=== PATIENT | female | born 1970 | race Caucasian/White ===

== ENCOUNTER 2022-12-24 20:21 | Inpatient (IN) | payer MEDICARE, MEDICAID ==
[~2022-12-24] VITALS: Ht 154.9 cm; Wt 49.6 kg
[~2022-12-24 20:21] MED LIST: DICY10CA88 PO; ONDA4TAB12 PO
[2022-12-24 21:59] LABS: BASOPHILS % (AUTO) 0.3 % (0-1); EOSINOPHILS % (AUTO) 0.1 % (0-6); HEMATOCRIT 44.2 % (35.0-45.0); HEMOGLOBIN 14.5 g/dl (12.0-16.0); LYMPHOCYTES # (AUTO) 1.1 X10'3 (1.1-4.8); LYMPHOCYTES % (AUTO) 8.2 % (21-51); MEAN CORPUSCULAR HEMOGLOBIN 29.5 PG (27.0-31.0); MEAN CORPUSCULAR HGB CONC 32.8 g/dL (33.0-36.5); MEAN CORPUSCULAR VOLUME 89.8 FL (78-98); MEAN PLATELET VOLUME 9.4 FL (7.4-10.4); MONOCYTES # (AUTO) 0.9 X10'3 (0-0.9); NEUTROPHILS # (AUTO) 11.3 X10'3 (1.8-7.7); NEUTROPHILS % (AUTO) 84.4 % (42-75); PLATELET COUNT 342 X10'3 (140-440); RED BLOOD COUNT 4.93 X10'6 (4.20-5.60); RED CELL DISTRIBUTION WIDTH 14.6 % (11.5-14.5); WHITE BLOOD COUNT 13.4 X10'3 (4.5-11.0)
[2022-12-24 22:06] LABS: ALANINE AMINOTRANSFERASE 19 U/L (12-78); ALBUMIN 3.3 G/DL (3.4-5.0); ALBUMIN/GLOBULIN RATIO 0.7 (1.1-1.5); ALKALINE PHOSPHATASE 108 IU/L (46-116); ANION GAP 11 (8-16); ASPARTATE AMINO TRANSFERASE 20 U/L (10-37); BILIRUBIN,TOTAL 0.4 MG/DL (0.1-1.0); BLOOD UREA NITROGEN 33 MG/DL (7-18); BUN/CREATININE RATIO 31.7 (10.0-20.0); CHLORIDE 101 MMOL/L (99-107); CREATININE 1.04 MG/DL (0.40-0.90); GLUCOSE 152 MG/DL (70-104); SODIUM 138 MMOL/L (135-145); TOTAL CARBON DIOXIDE 26.1 MMOL/L (24-32); TOTAL PROTEIN 8.2 G/DL (6.4-8.2); eCRCL 47 ML/MIN; eGFR 55 ML/MIN
[2022-12-24 22:08] LABS: LIPASE 72 U/L (16-77)
[2022-12-24 22:14] LABS: POTASSIUM 2.9 MMOL/L (3.5-5.1)
[2022-12-24 23:14] LABS: MAGNESIUM 1.8 MG/DL (1.5-2.4)
[2022-12-25] MEDS ORDERED: potassium Cl 20mEq/100mL bag 100 ML IV SCH (05:10)
[2022-12-25] MEDS ORDERED: normal saline 1000ml 1,000 ML IV ONE (05:10)
--- NOTE | 2022-12-25 05:16 | NUR ---
Graciela russell in EDM - 12/25/22 at 0518 by [email or web address] Pt presents to ED c/o bloody vomiting and diarrhea. Is able to answer questions.
--- NOTE | 2022-12-25 05:19 | NUR ---
Pt presents to ED c/o bloody vomiting and diarrhea. Is able to answer questions, reports minimal medical history except for current drug use, current hep C.
[2022-12-25] MEDS ORDERED: potassium Cl 40MEQ/1/2NS 520ml 520 ML IV ONE (05:20)
[2022-12-25] MEDS ORDERED: magnesium 4gm in 100ml NS 100 ML IV PRN (05:25)
[2022-12-25] MEDS ORDERED: magnesium hydroxide 30ml (MOM) UD suspension PO PRN (05:25)
[2022-12-25] MEDS ORDERED: mag hydrox/Alum hydrox/simeth 30ml oral suspension PO PRN (05:25)
[2022-12-25] MEDS ORDERED: acetaminophen 325mg tablet PO PRN (05:25)
[2022-12-25] MEDS ORDERED: albuterol 2.5 MG/3 ML nebule NEB PRN (05:25)
[2022-12-25] MEDS ORDERED: magnesium 2GM in 50ml NS 50 ML IV PRN (05:25)
[2022-12-25] MEDS ORDERED: ondansetron/PF 4mg/2ml inj IV PRN (05:25)
[2022-12-25] MEDS ORDERED: ipratropium/albuterol 3ml nebule NEB PRN (05:25)
[2022-12-25] MEDS ORDERED: potassium Cl 20 mEq SR tablet PO PRN (05:25)
[2022-12-25] MEDS: pantoprazole 40MG/NS 100ML BAG 100 ML IV SCH ×5 (05:34→20:51)
[2022-12-25 05:36] LABS: BILIRUBIN,URINE NEGATIVE (Neg); CLARITY,URINE CLOUDY (Clear); COLOR,URINE YELLOW (Yellow); GLUCOSE, URINE NEGATIVE (Neg); KETONES,URINE NEGATIVE (Neg); LEUKOCYTE ESTERASE ,URINE NEGATIVE (Neg); NITRITES, URINE NEGATIVE (Neg); OCCULT BLOOD,URINE TRACE-INTACT (Neg); PROTEIN,URINE TRACE mg/dl (Neg); URINE HCG NEGATIVE (NEG); UROBILINOGEN,URINE 0.2 E.U/dL (0.2-1.0)
[2022-12-25 05:41] LABS: UA COLLECTION TYPE CLN CATCH MIDSTREAM
--- NOTE | 2022-12-25 05:47 | NUR ---
urine rejected for culture d/t too many epithelium cells per lab
[2022-12-25 05:49] LABS: BACTERIA,URINE 2+ /HPF (Neg); MUCUS STRANDS MODERATE /LPF (Neg); RBC,URINE 0-2 /HPF (0-2); SQUAMOUS EPITHELIAL CELL,UR MANY /LPF (FEW)
[2022-12-25] MEDS: potassium Cl 40MEQ/1/2NS 520ml 520 ML IV PRN ×2 (05:53→11:41)
[2022-12-25] MEDS: normal saline 1000ml 1,000 ML IV SCH ×3 (05:53→17:39)
[2022-12-25] MEDS ORDERED: pantoprazole 40MG/NS 100ML BAG 100 ML IV SCH ×3 (06:00→11:08)
--- NOTE | 2022-12-25 06:33 | NUR ---
received report from Eden CRAWFORD assuming care of pt resting quietly at present time monitor leads on and functioning
[2022-12-25] MEDS: docusate sod 100mg capsule PO SCH ×2 (08:00→20:51)
[2022-12-25] MEDS: K and/or MAG REPLACEMENT MC SCH ×2 (08:00→20:00)
[2022-12-25] MEDS: nicotine 21mg patch - 24 hr TD SCH (08:00)
[2022-12-25 09:24] LABS: BASOPHILS % (AUTO) 0.3 % (0-1); EOSINOPHILS % (AUTO) 0.1 % (0-6); HEMOGLOBIN 11.4 g/dl (12.0-16.0); LYMPHOCYTES # (AUTO) 1.9 X10'3 (1.1-4.8); LYMPHOCYTES % (AUTO) 15.2 % (21-51); MEAN CORPUSCULAR HEMOGLOBIN 29.1 PG (27.0-31.0); MEAN CORPUSCULAR HGB CONC 32.6 g/dL (33.0-36.5); MEAN CORPUSCULAR VOLUME 89.3 FL (78-98); MEAN PLATELET VOLUME 8.8 FL (7.4-10.4); MONOCYTES % (AUTO) 8.2 % (2-12); NEUTROPHILS # (AUTO) 9.3 X10'3 (1.8-7.7); NEUTROPHILS % (AUTO) 76.2 % (42-75); PLATELET COUNT 266 X10'3 (140-440); RED BLOOD COUNT 3.92 X10'6 (4.20-5.60); RED CELL DISTRIBUTION WIDTH 14.9 % (11.5-14.5); WHITE BLOOD COUNT 12.2 X10'3 (4.5-11.0)
[2022-12-25 09:56] LABS: ALANINE AMINOTRANSFERASE 13 U/L (12-78); ALBUMIN 2.5 G/DL (3.4-5.0); ALBUMIN/GLOBULIN RATIO 0.7 (1.1-1.5); ALKALINE PHOSPHATASE 73 IU/L (46-116); ANION GAP 12 (8-16); ASPARTATE AMINO TRANSFERASE 14 U/L (10-37); BILIRUBIN,TOTAL 0.3 MG/DL (0.1-1.0); BLOOD UREA NITROGEN 26 MG/DL (7-18); BUN/CREATININE RATIO 36.1 (10.0-20.0); CALCIUM 8.4 MG/DL (8.5-10.1); CHLORIDE 109 MMOL/L (99-107); CREATININE 0.72 MG/DL (0.40-0.90); GLUCOSE 88 MG/DL (70-104); POTASSIUM 3.4 MMOL/L (3.5-5.1); SODIUM 142 MMOL/L (135-145); TOTAL CARBON DIOXIDE 21.1 MMOL/L (24-32); TOTAL PROTEIN 6.3 G/DL (6.4-8.2); eCRCL 68 ML/MIN; eGFR 85 ML/MIN
[2022-12-25] MEDS ORDERED: NO HOME MEDS (10:11)
--- NOTE | 2022-12-25 12:03 | NUR ---
2nd attempt to give report neuro/ortho floor to Brenda CRAWFORD
--- NOTE | 2022-12-25 12:30 | NUR ---
Patient in room ED 11. I have received report from YVETTE Fisher and had the opportunity to ask questions and assume patient care.
[2022-12-25 12:50] VITALS: BP 143/82; PULSE 99; RESP 18; TEMP 98.7; O2SAT 99
--- NOTE | 2022-12-25 12:55 | NUR ---
pt has arrived on the unit and is stable, taking and recording vital signs now and assessing the patient now. Will add physical assessment in interventions.
[2022-12-25 14:07] VITALS: PULSE 103; RESP 18; O2SAT 99
--- NOTE | 2022-12-25 17:27 | NUR ---
Waiting for patients protonix from pharmacy. I have messaged pharmacy and will continue to look for when medication is brought to the floor
[2022-12-25 18:00] VITALS: BP 139/91; PULSE 94; RESP 20; TEMP 98.5; O2SAT 99
--- NOTE | 2022-12-25 18:11 | NUR ---
protonix was brought to the floor from pharmacy and administered at 1800. NG tube was ordered by Dr. Diaz to be D/C. NG tube was discontinued and patient is able to swallow water and is now resting in no distress at this time.
--- NOTE | 2022-12-25 18:49 | NUR ---
Problems reprioritized. Patient report given, questions answered & plan of care reviewed with YVETTE Arteaga.
--- NOTE | 2022-12-25 18:55 | NUR ---
Patient in room ORTHO 4011. I have received report from JAVIER CRAWFORD and had the opportunity to ask questions and assume patient care.
[2022-12-25 19:51] VITALS: PULSE 111; RESP 18; O2SAT 97
[2022-12-25 20:00] VITALS: RESP 20; O2SAT 99
[2022-12-25 22:00] VITALS: BP_SYST 122; BP_SYST 126; BP_DIAS 68; BP_DIAS 80; PULSE 76; PULSE 80; RESP 16; TEMP 98.6; O2SAT 98
[2022-12-25] MEDS: potassium Cl 20 mEq SR tablet PO PRN (22:03)
[2022-12-26] VITALS (7 sets, daily range): BP systolic 117–158; BP diastolic 68–88; PULSE 80–100; RESP 16–20; TEMP 97.9–98.5; O2SAT 96–99
[2022-12-26] MEDS: pantoprazole 40MG/NS 100ML BAG 100 ML IV SCH ×5 (01:56→21:00)
[2022-12-26] MEDS: normal saline 1000ml 1,000 ML IV SCH ×5 (02:05→21:25)
[2022-12-26] MEDS: potassium Cl 20 mEq SR tablet PO PRN (03:04)
[2022-12-26 06:12] LABS: BASOPHILS % (AUTO) 0.6 % (0-1); EOSINOPHILS # (AUTO) 0.1 X10'3 (0-0.9); EOSINOPHILS % (AUTO) 0.8 % (0-6); HEMATOCRIT 36.6 % (35.0-45.0); HEMOGLOBIN 11.8 g/dl (12.0-16.0); LYMPHOCYTES # (AUTO) 1.8 X10'3 (1.1-4.8); LYMPHOCYTES % (AUTO) 23.7 % (21-51); MEAN CORPUSCULAR HEMOGLOBIN 29.2 PG (27.0-31.0); MEAN CORPUSCULAR HGB CONC 32.2 g/dL (33.0-36.5); MEAN CORPUSCULAR VOLUME 90.5 FL (78-98); MEAN PLATELET VOLUME 8.3 FL (7.4-10.4); MONOCYTES # (AUTO) 0.6 X10'3 (0-0.9); MONOCYTES % (AUTO) 8.4 % (2-12); NEUTROPHILS # (AUTO) 4.9 X10'3 (1.8-7.7); NEUTROPHILS % (AUTO) 66.5 % (42-75); PLATELET COUNT 234 X10'3 (140-440); RED BLOOD COUNT 4.04 X10'6 (4.20-5.60); WHITE BLOOD COUNT 7.4 X10'3 (4.5-11.0)
--- NOTE | 2022-12-26 06:30 | NUR ---
Problems reprioritized. Patient report given, questions answered & plan of care reviewed with PABLITO CRAWFORD.
[2022-12-26 06:35] LABS: ALANINE AMINOTRANSFERASE 13 U/L (12-78); ALBUMIN 2.7 G/DL (3.4-5.0); ALBUMIN/GLOBULIN RATIO 0.7 (1.1-1.5); ALKALINE PHOSPHATASE 81 IU/L (46-116); ANION GAP 15 (8-16); ASPARTATE AMINO TRANSFERASE 17 U/L (10-37); BILIRUBIN,TOTAL 0.6 MG/DL (0.1-1.0); BLOOD UREA NITROGEN 18 MG/DL (7-18); BUN/CREATININE RATIO 25.4 (10.0-20.0); CALCIUM 8.5 MG/DL (8.5-10.1); CHLORIDE 107 MMOL/L (99-107); CREATININE 0.71 MG/DL (0.40-0.90); GLUCOSE 55 MG/DL (70-104); MAGNESIUM 1.8 MG/DL (1.5-2.4); POTASSIUM 3.9 MMOL/L (3.5-5.1); SODIUM 141 MMOL/L (135-145); TOTAL CARBON DIOXIDE 18.6 MMOL/L (24-32); TOTAL PROTEIN 6.8 G/DL (6.4-8.2); eCRCL 69 ML/MIN; eGFR 86 ML/MIN
[2022-12-26] MEDS: docusate sod 100mg capsule PO SCH ×2 (07:28→20:34)
[2022-12-26] MEDS: nicotine 21mg patch - 24 hr TD SCH (07:33)
[2022-12-26] MEDS: K and/or MAG REPLACEMENT MC SCH ×2 (07:34→20:00)
[2022-12-26] MEDS ORDERED: ALBU2.5V7 NEB (10:17)
[2022-12-26] MEDS ORDERED: NICO-687 TD (10:17)
[2022-12-26] MEDS ORDERED: PANT-47 PO (10:17)
--- NOTE | 2022-12-26 15:00 | NUR ---
Pt states she wants to go to [facility]", spoke with psychosocial rehabilitation counselor who states they do not have beds available at this time, will continue to look for other placement options.
--- NOTE | 2022-12-26 16:00 | NUR ---
I have reviewed and agree with interventions, assessments, and documentation by Laura Fraire LVN.
[2022-12-27] MEDS: pantoprazole 40MG/NS 100ML BAG 100 ML IV SCH ×2 (00:37→05:43)
[2022-12-27] MEDS: normal saline 1000ml 1,000 ML IV SCH ×2 (01:04→09:35)
[2022-12-27 06:00] VITALS: BP 153/75; PULSE 94; RESP 14; TEMP 97.6; O2SAT 96
[2022-12-27 06:24] LABS: BASOPHILS % (AUTO) 0.5 % (0-1); EOSINOPHILS # (AUTO) 0.1 X10'3 (0-0.9); EOSINOPHILS % (AUTO) 1.4 % (0-6); HEMATOCRIT 33.7 % (35.0-45.0); HEMOGLOBIN 11.2 g/dl (12.0-16.0); LYMPHOCYTES # (AUTO) 1.5 X10'3 (1.1-4.8); LYMPHOCYTES % (AUTO) 27.4 % (21-51); MEAN CORPUSCULAR HEMOGLOBIN 29.6 PG (27.0-31.0); MEAN CORPUSCULAR HGB CONC 33.2 g/dL (33.0-36.5); MEAN CORPUSCULAR VOLUME 89.1 FL (78-98); MEAN PLATELET VOLUME 8.5 FL (7.4-10.4); MONOCYTES # (AUTO) 0.6 X10'3 (0-0.9); MONOCYTES % (AUTO) 10.5 % (2-12); NEUTROPHILS # (AUTO) 3.2 X10'3 (1.8-7.7); NEUTROPHILS % (AUTO) 60.2 % (42-75); PLATELET COUNT 241 X10'3 (140-440); RED BLOOD COUNT 3.79 X10'6 (4.20-5.60); RED CELL DISTRIBUTION WIDTH 14.4 % (11.5-14.5); WHITE BLOOD COUNT 5.3 X10'3 (4.5-11.0)
--- NOTE | 2022-12-27 06:25 | NUR ---
Problems reprioritized. Patient report given, questions answered & plan of care reviewed with PABLITO GOULD.
[2022-12-27 06:43] LABS: ALANINE AMINOTRANSFERASE 12 U/L (12-78); ALBUMIN 2.5 G/DL (3.4-5.0); ALBUMIN/GLOBULIN RATIO 0.7 (1.1-1.5); ALKALINE PHOSPHATASE 74 IU/L (46-116); ANION GAP 6 (8-16); ASPARTATE AMINO TRANSFERASE 12 U/L (10-37); BILIRUBIN,TOTAL 0.2 MG/DL (0.1-1.0); BLOOD UREA NITROGEN 7 MG/DL (7-18); BUN/CREATININE RATIO 12.3 (10.0-20.0); CALCIUM 8.4 MG/DL (8.5-10.1); CHLORIDE 108 MMOL/L (99-107); CREATININE 0.57 MG/DL (0.40-0.90); GLUCOSE 110 MG/DL (70-104); MAGNESIUM 1.6 MG/DL (1.5-2.4); POTASSIUM 3.1 MMOL/L (3.5-5.1); SODIUM 141 MMOL/L (135-145); TOTAL CARBON DIOXIDE 27.5 MMOL/L (24-32); TOTAL PROTEIN 6.3 G/DL (6.4-8.2); eCRCL 86 ML/MIN; eGFR > 90 ML/MIN
[2022-12-27] MEDS: K and/or MAG REPLACEMENT MC SCH (07:17)
[2022-12-27] MEDS: nicotine 21mg patch - 24 hr TD SCH (07:20)
[2022-12-27] MEDS: potassium Cl 20 mEq SR tablet PO PRN ×2 (07:24→11:56)
[2022-12-27] MEDS: docusate sod 100mg capsule PO SCH (07:24)
[2022-12-27 08:00] VITALS: BP_SYST 137; BP_SYST 144; BP_SYST 146; BP_DIAS 85; BP_DIAS 89; BP_DIAS 91; RESP 14; O2SAT 96
[2022-12-27 10:00] VITALS: BP 144/81; PULSE 80; RESP 15; RESP 16; TEMP 98.3; O2SAT 98; O2SAT 99
[2022-12-27 12:00] VITALS: BP_SYST 137; BP_SYST 144; BP_SYST 146; BP_DIAS 85; BP_DIAS 89; BP_DIAS 91
[2022-12-27 12:50] VITALS: RESP 16; O2SAT 96
--- NOTE | 2022-12-27 13:35 | NUR ---
reviewed physical assessment charting with Student RN
[2022-12-27 14:38] VITALS: PULSE 92; RESP 17; O2SAT 98
--- NOTE | 2022-12-27 17:00 | NUR ---
I have reviewed and agree with interventions, assessments, and documentation by Laura Fraire LVN.
--- NOTE | 2022-12-27 17:35 | NUR ---
Patient discharged with personal belongings sent with via cab to requested location. Piv was discontinued with tip intact. Alert and appropriate at the time of discharge.
[2022-12-28] MEDS ORDERED: pantoprazole 40mg Tablet.DR PO SCH (07:30)
== END 2022-12-27 17:39 | disposition home or self-care (01) | DRG 377 ==
LOC: ER 20:22 → ED HOLD 12-25 05:31 → ORTHO 4S 12-25 12:56
PROVIDERS: ADMIT Family Medicine; ATTEND Internal Medicine
DX: K92.0 Hematemesis (principal); N17.0 Acute kidney failure with tubular necrosis; Z59.00 Homelessness unspecified; E87.6 Hypokalemia; D72.823 Leukemoid reaction; F15.10 Other stimulant abuse, uncomplicated; F17.210 Nicotine dependence, cigarettes, uncomplicated; F20.9 Schizophrenia, unspecified; F43.10 Post-traumatic stress disorder, unspecified; K21.9 Gastro-esophageal reflux disease without esophagitis; N28.9 Disorder of kidney and ureter, unspecified; Z87.19 Personal history of other diseases of the digestive system; Z56.0 Unemployment, unspecified
CPT/HCPCS: 36415; 71045; 80053; 81001; 81025; 82948; 83690; 83735; 84145; 85025; 86885; 86900; 86901; 87081; 94760; 99285; C9113; G0378; J3480; J7030

== ENCOUNTER 2023-04-16 04:54 | Emergency (ER) | payer MEDICARE, MEDICAID ==
[~2023-04-16] VITALS: Ht 157.5 cm; Wt 45.0 kg
[~2023-04-16 04:54] MED LIST changes: +ALBU2.5V7 NEB; -DICY10CA88 PO; +NICO-687 TD; +NO HOME MEDS; -ONDA4TAB12 PO; +PANT-47 PO
[2023-04-16] MEDS ORDERED: ondansetron 4mg rapidly disintigrating tab PO ONE (08:10)
[2023-04-16] MEDS ORDERED: mag hydrox/Alum hydrox/simeth 30ml oral suspension PO ONE (08:10)
[2023-04-16 08:44] LABS: BASOPHILS # (AUTO) 0.1 X10'3 (0-0.2); BASOPHILS % (AUTO) 0.5 % (0-1); EOSINOPHILS % (AUTO) 0.1 % (0-6); HEMATOCRIT 41.4 % (35.0-45.0); HEMOGLOBIN 13.4 g/dl (12.0-16.0); LYMPHOCYTES % (AUTO) 6.5 % (21-51); MEAN CORPUSCULAR HEMOGLOBIN 27.7 PG (27.0-31.0); MEAN CORPUSCULAR HGB CONC 32.3 g/dL (33.0-36.5); MEAN CORPUSCULAR VOLUME 85.5 FL (78-98); MEAN PLATELET VOLUME 8.3 FL (7.4-10.4); MONOCYTES # (AUTO) 0.9 X10'3 (0-0.9); MONOCYTES % (AUTO) 5.7 % (2-12); NEUTROPHILS # (AUTO) 13.6 X10'3 (1.8-7.7); NEUTROPHILS % (AUTO) 87.2 % (42-75); PLATELET COUNT 467 X10'3 (140-440); RED BLOOD COUNT 4.84 X10'6 (4.20-5.60); RED CELL DISTRIBUTION WIDTH 15.1 % (11.5-14.5); WHITE BLOOD COUNT 15.6 X10'3 (4.5-11.0)
[2023-04-16 09:12] VITALS: BP 185/105; PULSE 116; TEMP 97.3; O2SAT 98
[2023-04-16 09:16] VITALS: RESP 18
[2023-04-16] MEDS ORDERED: OMEP40CA21 PO (10:06)
[2023-04-16 10:08] LABS: ALANINE AMINOTRANSFERASE 26 U/L (12-78); ALBUMIN 3.8 G/DL (3.4-5.0); ALBUMIN/GLOBULIN RATIO 0.7 (1.1-1.5); ALKALINE PHOSPHATASE 133 IU/L (46-116); ANION GAP 9 (8-16); ASPARTATE AMINO TRANSFERASE 22 U/L (10-37); BILIRUBIN,TOTAL 0.3 MG/DL (0.1-1.0); BLOOD UREA NITROGEN 15 MG/DL (7-18); CALCIUM 10.6 MG/DL (8.5-10.1); CHLORIDE 103 MMOL/L (99-107); CREATININE 0.88 MG/DL (0.40-0.90); GLUCOSE 133 MG/DL (70-104); LIPASE 68 U/L (16-77); POTASSIUM 4.2 MMOL/L (3.5-5.1); SODIUM 143 MMOL/L (135-145); TOTAL CARBON DIOXIDE 30.7 MMOL/L (24-32); TOTAL PROTEIN 9.3 G/DL (6.4-8.2); eCRCL 53 ML/MIN; eGFR 67 ML/MIN
== END 2023-04-16 10:27 | disposition home or self-care (01) ==
LOC: ER 04:55
DX: R10.84 Generalized abdominal pain (principal); Z59.00 Homelessness unspecified; Z56.0 Unemployment, unspecified
CPT/HCPCS: 36415; 80053; 83690; 85025; 99283

== ENCOUNTER 2023-05-08 08:47 | Emergency (ER) | payer MEDICARE, MEDICAID ==
[~2023-05-08] VITALS: Ht 160 cm; Wt 50.7 kg
[~2023-05-08 08:47] MED LIST changes: +LACT1CAP60 PO
[2023-05-08 09:56] LABS: BASOPHILS % (AUTO) 0.2 % (0-1); HEMOGLOBIN 13.6 g/dl (12.0-16.0); LYMPHOCYTES # (AUTO) 1.2 X10'3 (1.1-4.8)
[2023-05-08 09:58] LABS: EOSINOPHILS % (AUTO) 0.4 % (0-6); HEMATOCRIT 42.4 % (35.0-45.0); LYMPHOCYTES % (AUTO) 8.6 % (21-51); MEAN CORPUSCULAR HEMOGLOBIN 27.3 PG (27.0-31.0); MEAN CORPUSCULAR HGB CONC 32.1 g/dL (33.0-36.5); MEAN CORPUSCULAR VOLUME 85.1 FL (78-98); MEAN PLATELET VOLUME 8.6 FL (7.4-10.4); MONOCYTES % (AUTO) 7.6 % (2-12); NEUTROPHILS # (AUTO) 11.3 X10'3 (1.8-7.7); NEUTROPHILS % (AUTO) 83.2 % (42-75); PLATELET COUNT 392 X10'3 (140-440); RED BLOOD COUNT 4.99 X10'6 (4.20-5.60); RED CELL DISTRIBUTION WIDTH 16.8 % (11.5-14.5); WHITE BLOOD COUNT 13.6 X10'3 (4.5-11.0)
[2023-05-08] MEDS: pantoprazole 40 MG vial IV SCH (10:03)
[2023-05-08 10:10] LABS: ALANINE AMINOTRANSFERASE 20 U/L (12-78); ALBUMIN 3.5 G/DL (3.4-5.0); ALBUMIN/GLOBULIN RATIO 0.8 (1.1-1.5); ALKALINE PHOSPHATASE 87 IU/L (46-116); ANION GAP 10 (8-16); ASPARTATE AMINO TRANSFERASE 22 U/L (10-37); BILIRUBIN,TOTAL 0.3 MG/DL (0.1-1.0); BLOOD UREA NITROGEN 15 MG/DL (7-18); BUN/CREATININE RATIO 23.4 (10.0-20.0); CALCIUM 9.1 MG/DL (8.5-10.1); CHLORIDE 107 MMOL/L (99-107); CREATININE 0.64 MG/DL (0.40-0.90); GLUCOSE 108 MG/DL (70-104); SODIUM 145 MMOL/L (135-145); TOTAL CARBON DIOXIDE 27.9 MMOL/L (24-32); TOTAL PROTEIN 8.1 G/DL (6.4-8.2); eCRCL 81 ML/MIN; eGFR > 90 ML/MIN
[2023-05-08 10:19] LABS: APTT 25 SECONDS (22-32); INR 0.9 INR; PROTHROMBIN TIME 10.1 SECONDS (9.0-12.0)
[2023-05-08 10:30] LABS: OCCULT BLOOD STOOL POSITIVE (Neg)
[2023-05-08] MEDS: normal saline 1000ml 1,000 ML IV STA (11:50)
[2023-05-08 16:27] VITALS: BP 117/74; PULSE 88; RESP 12; TEMP 97.9; O2SAT 100
== END 2023-05-08 14:19 | disposition home or self-care (01) ==
LOC: ER 08:47
DX: R10.9 Unspecified abdominal pain (principal); R15.9 Full incontinence of feces; F15.10 Other stimulant abuse, uncomplicated; Z86.2 Personal history of diseases of the blood and blood-forming organs and certain disorders involving the immune mechanism; Z59.00 Homelessness unspecified; Z56.0 Unemployment, unspecified; Z88.1 Allergy status to other antibiotic agents; Z79.899 Other long term (current) drug therapy
CPT/HCPCS: 36415; 71045; 80053; 82272; 85025; 85610; 85730; 96361; 96374; 99285; C9113; J7030

== ENCOUNTER 2023-10-26 11:18 | Emergency (ER) | payer MEDICARE, MEDICAID ==
[~2023-10-26] VITALS: Ht 154.9 cm; Wt 47.4 kg
[~2023-10-26 11:18] MED LIST changes: -NO HOME MEDS; +ONDA-243 PO; +PANT40TA54 PO; +PRED20TA PO
[2023-10-26] MEDS ORDERED: IBUP-1984 PO (13:12)
[2023-10-26 13:22] VITALS: BP 153/79; PULSE 67; RESP 16; TEMP 97.8; O2SAT 97
== END 2023-10-26 13:24 | disposition home or self-care (01) ==
LOC: ER 11:19
DX: M25.511 Pain in right shoulder (principal); D64.9 Anemia, unspecified; F15.90 Other stimulant use, unspecified, uncomplicated; Z88.1 Allergy status to other antibiotic agents; Z79.899 Other long term (current) drug therapy; Z79.52 Long term (current) use of systemic steroids; Z59.00 Homelessness unspecified; Z56.0 Unemployment, unspecified
CPT/HCPCS: 73030; 99284

== ENCOUNTER 2023-12-01 00:22 | Emergency (ER) | payer MEDICARE, MEDICAID ==
[~2023-12-01] VITALS: Ht 162.6 cm; Wt 54.5 kg
[2023-12-01 03:07] LABS: BASOPHILS # (AUTO) 0.1 X10'3 (0-0.2); BASOPHILS % (AUTO) 0.6 % (0-1); EOSINOPHILS # (AUTO) 0.1 X10'3 (0-0.9); HEMATOCRIT 43.8 % (35.0-45.0); HEMOGLOBIN 14.4 g/dl (12.0-16.0); LYMPHOCYTES # (AUTO) 1.6 X10'3 (1.1-4.8); MEAN CORPUSCULAR HEMOGLOBIN 29.4 PG (27.0-31.0); MEAN CORPUSCULAR HGB CONC 32.8 g/dL (33.0-36.5); MEAN CORPUSCULAR VOLUME 89.4 FL (78-98); MEAN PLATELET VOLUME 9.5 FL (7.4-10.4); MONOCYTES # (AUTO) 0.5 X10'3 (0-0.9); MONOCYTES % (AUTO) 5.6 % (2-12); NEUTROPHILS # (AUTO) 7.2 X10'3 (1.8-7.7); NEUTROPHILS % (AUTO) 75.8 % (42-75); PLATELET COUNT 306 X10'3 (140-440); RED CELL DISTRIBUTION WIDTH 16.1 % (11.5-14.5); WHITE BLOOD COUNT 9.5 X10'3 (4.5-11.0)
[2023-12-01 03:20] LABS: ALANINE AMINOTRANSFERASE 22 U/L (12-78); ALBUMIN 3.5 G/DL (3.4-5.0); ALBUMIN/GLOBULIN RATIO 0.8 (1.1-1.5); ALKALINE PHOSPHATASE 106 IU/L (46-116); ANION GAP 11 (8-16); ASPARTATE AMINO TRANSFERASE 19 U/L (10-37); BILIRUBIN,TOTAL 0.3 MG/DL (0.1-1.0); BLOOD UREA NITROGEN 10 MG/DL (7-18); BUN/CREATININE RATIO 13.3 (10.0-20.0); CALCIUM 10.2 MG/DL (8.5-10.1); CHLORIDE 106 MMOL/L (99-107); CREATININE 0.75 MG/DL (0.40-0.90); GLUCOSE 114 MG/DL (70-104); LIPASE 132 U/L (16-77); POTASSIUM 4.7 MMOL/L (3.5-5.1); SODIUM 144 MMOL/L (135-145); TOTAL CARBON DIOXIDE 26.9 MMOL/L (24-32); TOTAL PROTEIN 8.1 G/DL (6.4-8.2); eCRCL 74 ML/MIN; eGFR 81 ML/MIN
[2023-12-01 06:19] LABS: BILIRUBIN,URINE NEGATIVE (Neg); CLARITY,URINE SLIGHTLY CLOUDY (Clear); COLOR,URINE YELLOW (Yellow); GLUCOSE, URINE NEGATIVE (Neg); KETONES,URINE NEGATIVE (Neg); LEUKOCYTE ESTERASE ,URINE NEGATIVE (Neg); NITRITES, URINE NEGATIVE (Neg); OCCULT BLOOD,URINE NEGATIVE (Neg); PROTEIN,URINE NEGATIVE (Neg); UROBILINOGEN,URINE 0.2 E.U/dL (0.2-1.0)
[2023-12-01 06:20] LABS: UA COLLECTION TYPE CLN CATCH MIDSTREAM
[2023-12-01 06:24] LABS: BACTERIA,URINE 1+ /HPF (Neg); MUCUS STRANDS MODERATE /LPF (Neg); RBC,URINE 0-2 /HPF (0-2); SQUAMOUS EPITHELIAL CELL,UR MANY /LPF (FEW); WBC,URINE 0-4 /HPF (0-4)
[2023-12-01] MEDS ORDERED: ONDA-243 PO (09:49)
[2023-12-01] MEDS ORDERED: OMEP40CA21 PO (09:49)
[2023-12-01 10:11] VITALS: BP 132/83; PULSE 74; RESP 18; TEMP 97.8; O2SAT 98
== END 2023-12-01 10:14 | disposition home or self-care (01) ==
LOC: ER 00:23
DX: R10.13 Epigastric pain (principal); F17.200 Nicotine dependence, unspecified, uncomplicated; F15.90 Other stimulant use, unspecified, uncomplicated; Z88.1 Allergy status to other antibiotic agents; Z79.899 Other long term (current) drug therapy
CPT/HCPCS: 36415; 80053; 81001; 83690; 85025; 99283

== ENCOUNTER 2024-01-28 17:02 | Emergency (ER) | payer MEDICARE, MEDICAID ==
[~2024-01-28] VITALS: Ht 154.9 cm; Wt 54.5 kg
[2024-01-28 17:18] VITALS: TEMP 99.1
[2024-01-28 18:21] LABS: ALANINE AMINOTRANSFERASE 17 U/L (12-78); ALBUMIN 3.7 G/DL (3.4-5.0); ALBUMIN/GLOBULIN RATIO 0.8 (1.1-1.5); ALKALINE PHOSPHATASE 112 IU/L (46-116); ANION GAP 9 (8-16); ASPARTATE AMINO TRANSFERASE 33 U/L (10-37); BILIRUBIN,TOTAL 0.4 MG/DL (0.1-1.0); BLOOD UREA NITROGEN 21 MG/DL (7-18); BUN/CREATININE RATIO 17.9 (10.0-20.0); CALCIUM 9.2 MG/DL (8.5-10.1); CHLORIDE 101 MMOL/L (99-107); CREATININE 1.17 MG/DL (0.40-0.90); GLUCOSE 136 MG/DL (70-104); LIPASE 145 U/L (16-77); POTASSIUM 4.2 MMOL/L (3.5-5.1); SODIUM 135 MMOL/L (135-145); TOTAL CARBON DIOXIDE 24.7 MMOL/L (24-32); TOTAL PROTEIN 8.3 G/DL (6.4-8.2); eCRCL 41 ML/MIN; eGFR 48 ML/MIN
[2024-01-28 20:01] LABS: URINE HCG NEGATIVE (NEG)
[2024-01-28 20:16] LABS: BILIRUBIN,URINE SMALL (Neg); CLARITY,URINE CLEAR (Clear); COLOR,URINE YELLOW (Yellow); GLUCOSE, URINE NEGATIVE (Neg); KETONES,URINE 15 mg/dl (Neg); LEUKOCYTE ESTERASE ,URINE TRACE (Neg); NITRITES, URINE NEGATIVE (Neg); OCCULT BLOOD,URINE NEGATIVE (Neg); PH,URINE 5.5 (4.8-8.0); PROTEIN,URINE 30 mg/dl (Neg); UROBILINOGEN,URINE 0.2 E.U/dL (0.2-1.0)
[2024-01-28 20:30] LABS: UA COLLECTION TYPE CLN CATCH MIDSTREAM
[2024-01-28 20:32] LABS: SQUAMOUS EPITHELIAL CELL,UR MANY /LPF (FEW)
[2024-01-28 20:33] LABS: BACTERIA,URINE 4+ /HPF (Neg); CAL OXALATE CRYSTALS 3+ /HPF (NEGATIVE)
[2024-01-28] MEDS: normal saline 1000ML IV soln IVB ONE (20:37)
[2024-01-28] MEDS: famotidine 20mg tablet PO ONE (20:38)
[2024-01-28] MEDS: ondansetron/PF 4mg/2ml inj IM ONE (20:38)
[2024-01-28 21:22] LABS: BASOPHILS % (AUTO) 0.3 % (0-1); EOSINOPHILS % (AUTO) 0.3 % (0-6); HEMATOCRIT 48.5 % (35.0-45.0); HEMOGLOBIN 16.4 g/dl (12.0-16.0); LYMPHOCYTES # (AUTO) 1.1 X10'3 (1.1-4.8); LYMPHOCYTES % (AUTO) 10.7 % (21-51); MEAN CORPUSCULAR HEMOGLOBIN 30.6 PG (27.0-31.0); MEAN CORPUSCULAR HGB CONC 33.9 g/dL (33.0-36.5); MEAN CORPUSCULAR VOLUME 90.3 FL (78-98); MEAN PLATELET VOLUME 9.1 FL (7.4-10.4); MONOCYTES # (AUTO) 0.6 X10'3 (0-0.9); MONOCYTES % (AUTO) 5.8 % (2-12); NEUTROPHILS # (AUTO) 8.3 X10'3 (1.8-7.7); NEUTROPHILS % (AUTO) 82.9 % (42-75); PLATELET COUNT 379 X10'3 (140-440); RED BLOOD COUNT 5.37 X10'6 (4.20-5.60); RED CELL DISTRIBUTION WIDTH 15.2 % (11.5-14.5); WHITE BLOOD COUNT 10.1 X10'3 (4.5-11.0)
[2024-01-28 22:00] VITALS: BP 165/89; PULSE 98; RESP 18; O2SAT 92
[2024-01-28] MEDS ORDERED: ONDA-243 PO (22:29)
[2024-01-28] MEDS ORDERED: NITR100C6 PO (22:29)
[2024-01-28] MEDS ORDERED: ACET-1266 PO (22:29)
[2024-01-28] MEDS ORDERED: BISM-155 PO (22:50)
== END 2024-01-28 22:47 | disposition home or self-care (01) ==
LOC: ER 17:02
DX: R10.32 Left lower quadrant pain (principal); E86.0 Dehydration; N39.0 Urinary tract infection, site not specified; R11.0 Nausea; R19.7 Diarrhea, unspecified; F17.200 Nicotine dependence, unspecified, uncomplicated; F15.90 Other stimulant use, unspecified, uncomplicated; K21.9 Gastro-esophageal reflux disease without esophagitis; Z91.041 Radiographic dye allergy status; Z79.899 Other long term (current) drug therapy; Z87.11 Personal history of peptic ulcer disease; Z59.00 Homelessness unspecified
CPT/HCPCS: 36415; 80053; 81001; 81025; 83690; 85025; 96372; 99283; J2405; J7030

== ENCOUNTER 2024-11-17 12:20 | Emergency (ER) | payer MEDICARE, MEDICAID ==
[~2024-11-17] VITALS: Ht 154.9 cm; Wt 56.4 kg
[~2024-11-17 12:20] MED LIST changes: -ALBU2.5V7 NEB; +AMIO200T76 PO; -LACT1CAP60 PO; -NICO-687 TD; -ONDA-243 PO; -PANT-47 PO; -PANT40TA54 PO; -PRED20TA PO
[2024-11-17 12:28] VITALS: TEMP 97.8
[2024-11-17] MEDS ORDERED: sulfamethoxazole/trimethoprim DS (800/160mg) tablet PO ONE (14:10)
--- NOTE | 2024-11-17 14:13 | Physician Documentation ---
History of Present Illness ~ Chief Complaint: Abscess Stated Complaint: POSS INFECTION Time Seen by MD: 13:55 Primary Medical Doctor: [facility] 54-year-old female who is well known to this ED in his an ongoing IV and methamphetamine user reports multiple small abscesses on both lower extremities small abscess on her right upper extremity. Denies fevers/ Tetanus Within 5 Years: No (didnt ask) Medication Reconciliation Allergies: Coded Allergies: erythromycin base (Verified Adverse Reaction, Unknown, STOMACH, 01/28/24) Scheduled Amiodarone Hcl (Cordarone), 200 MG PO BID Cephalexin*Monohydrate* (Keflex*), 1 CAP PO QID Sulfamethoxazole/Trimethoprim (Septra Ds Tab), 1 TAB PO Q12H Past Medical History Past Medical History: Atrial Fibrillation, GI Bleed, Peptic Ulcer Disease, Anemia, Acute Kidney Injury Past Surgical History: noncontributory Patient History: FH: heart disease (Father,) Drug Use: methamphetamine Lives In: Homeless Occupation: unemployed Review of Systems All Other Systems at this time: Reviewed and Negative ROS As stated above in the HPI, otherwise all systems are reviewed and negative. Physical Exam Vital Signs: Temperature: 97.8, Source: Temporal, Heart Rate: 78, Respiratory Rate: 18, BP: 135/87, Pulse Oximetry: 98, Weight: 56.360 Physical Exam General: Alert, no apparent distress. Extremities: multiple small purulurlent sores B/L LE Neurologic: Oriented x4. Psychiatric: Normal mood and affect. Progress Results/Orders Results/Orders Completed Orders - NICK SHEFFIELD ADJUSTER PIANO ACTION Sulfamethox/Trimetho. Ds Tab (Septra Ds (11/17/24 14:10) Cephalexin Capsule (Keflex Capsule) (11/17/24 14:10) Vital Signs 11/17/24 11/17/24 12:28 14:25 Temp 97.8 Pulse 78 72 Resp 18 14 B/P (MAP) 135/87 154/76 Pulse Ox 98 99 Medical Decision Making Findings pt was notable for multiple purulent sores on bilateral lower extremities and one on her right upper extremity Keflex and Bactrim. Suspect with the sores were caused by methamphetamine induced picking Does not present acutely ill or show any signs of sepsis Differential Dx:Considerations: Include: Abscess, Bacteremia, Cellulitis, Erysipelas, Felon, Gas gangrene, Hidrademitis suppurativa, Impetigo, Lymphangitis, Osteromyelitis, Paronychia, Septicemia, Other Departure Disposition: HOME / SELF CARE / HOMELESS Impression: Primary Impression: Wound abscess Condition: Stable Discharge Instructions: Abscess, Care After Referrals: NO PRIMARY CARE PROVIDER (PCP) Prescriptions Cephalexin*Monohydrate* (Keflex*) 500 Mg Capsule 1 CAP PO QID, #40 CAP Prov: NICK SHEFFIELD NP 11/17/24 Sulfamethoxazole/Trimethoprim (Septra Ds Tab) 800 Mg/160 Mg Tablet 1 TAB PO Q12H for 10 Days, #20 TAB Prov: NICK SHEFFIELD NP 11/17/24 Signature Scribe Signature: t Attestation: Scribed for Nick Sheffield User Acceptance Tester by Nick Sheffield - BRANDON . 11/17/24 17:44 NICK SHEFFIELD NP Nov 17, 2024 14:13
[2024-11-17] MEDS ORDERED: SULF1TAB45 PO (14:17)
[2024-11-17] MEDS ORDERED: CEPH-585 PO (14:17)
[2024-11-17 14:25] VITALS: BP 154/76; PULSE 72; RESP 14; O2SAT 99
== END 2024-11-17 14:26 | disposition home or self-care (01) ==
LOC: ER 12:21
DX: L02.416 Cutaneous abscess of left lower limb (principal); L02.415 Cutaneous abscess of right lower limb; L02.413 Cutaneous abscess of right upper limb; I48.91 Unspecified atrial fibrillation; Z88.1 Allergy status to other antibiotic agents
CPT/HCPCS: 99283

== ENCOUNTER 2025-02-28 13:27 | Emergency (ER) | payer MEDICARE, MEDICAID ==
[~2025-02-28] VITALS: Ht 154.9 cm; Wt 63.0 kg
[~2025-02-28 13:27] MED LIST changes: +ATOR20TA66 PO; +FURO-150 PO; +METO-395 PO; +PANT40TA54 PO
--- NOTE | 2025-02-28 13:46 | ELECTROCARDIOGRAPH REPORT ---
[facility] Test Date: 2025-02-28 Test Time: 13:44:24 Pat Name: JASPREET BISHOP Department: EMERGENCY ROOM Room: Gender: F Flat Bed Operator: EDNIS : 1970 Requested By: JEFF QUIÑONEZ Order Number: [id number] Reading MD: Measurements Intervals [place] Rate: 104 P: 84 OH: 122 QRS: 82 QRSD: 78 T: 0 QT: 341 QTc: 449 Interpretive Statements Sinus tachycardia Biatrial enlargement Borderline repolarization abnormality Please click the below link to view image of tracing.
--- NOTE | 2025-02-28 13:57 | Physician Documentation ---
History of Present Illness ~ Chief Complaint: Chest Pain Stated Complaint: NAUSEA/VOMITTING Time Seen by MD: 13:36 OK to notify your PCP?: Yes Primary Medical Doctor: [facility] Source: patient Mode of Arrival: POV Exam Limitations: no limitations HEART Score: 0 HPI 54-year-old female with chief complaint heartburn and acid reflux that she has dealt with for a long time but reports today her symptoms increased after eating lunch. She states "I am not having chest pain, I am having problems from my ulcer." She missed her protonix dosage today. She states she has it in her possession but just not right now so was not able to take it this morning. She does have a history of gastric ulcers and states the pain feels similar but reports that that pain has been managed so she is unsure why that would have just suddenly increased. No cardiac history other than atrial fibrillation. No fever, chills, diarrhea, constipation, blood in emesis, blood in stool, chest pain, sob. Medication Reconciliation Allergies: Coded Allergies: erythromycin base (Verified Adverse Reaction, Unknown, STOMACH, 01/28/24) Scheduled Amiodarone Hcl (Cordarone), 200 MG PO BID Atorvastatin Calcium (Atorvastatin Calcium), 20 MG PO DAILY Furosemide (Lasix), 20 MG PO DAILY Metoprolol Succinate (Metoprolol Succinate), 1 TAB PO DAILY Pantoprazole Sodium (Pantoprazole Sodium), 40 MG PO BKF Past Medical History Past Medical History: Atrial Fibrillation, GI Bleed, Peptic Ulcer Disease, Anemia, Acute Kidney Injury Past Surgical History: noncontributory Patient History: FH: heart disease (Father,) Drug Use: methamphetamine Lives In: Homeless Occupation: unemployed Review of Systems All Other Systems at this time: Reviewed and Negative Physical Exam Vital Signs: Temperature: 98.6, Source: Oral, Heart Rate: 105, Respiratory Rate: 20, BP: 160/92, Pulse Oximetry: 98, Weight: 63.000 Physical Exam GENERAL: Alert, no acute distress. HEENT: NCAT, EOMI, PERRL, normal oropharynx, moist oral mucosa. NECK: Supple, trachea midline. CARDIAC: Regular rate and rhythm, no murmurs, rubs, or gallops. Equal distal pulses. No lower extremity edema, cap refill less than 2 seconds. RESPIRATORY: Equal breath sounds, clear to auscultation bilaterally, no respiratory distress. GASTROINTESTINAL: Non distended, soft, nontender, No guarding or rebound. MUSCULOSKELETAL: Normal range of motion, nontender, no swelling. Normal gait. NEUROLOGICAL: Awake, alert, and oriented x 3. SKIN: Warm/dry, no pallor, no rash. PSYCH: Alert and appropriate. Affect congruent with mood. Speech is clear. Good eye contact. Progress Results/Orders Results/Orders Orders - JEFF QUIÑONEZ Hs Troponin I W Calculations (02/28/25 15:42) Hs Troponin I W Calculations (02/28/25 16:42) Pantoprazole Tablet (Protonix) (02/28/25 15:28) Sucralfate Tablet (Carafate Tablet) (02/28/25 15:30) Mag & Alum Hydrox/Simeth Susp (Maalox Or (02/28/25 15:30) Completed Orders - JEFF QUIÑONEZ Cbc/Diff (02/28/25 13:42) BMP (02/28/25 13:42) Hs Troponin I W Calculations (02/28/25 13:42) Stat Ekg (02/28/25 13:42) Ondansetron Disint. Tablet (Zofran Odt T (02/28/25 13:45) Medications Received in ER Medications (Trade) Dose Ordered Sig/Enrike Route PRN Reason Start Time Stop Time Status Last Admin Dose Admin (Zofran ODT tablet) 4 mg ONCE ONCE PO 02/28/25 13:45 02/28/25 13:46 DC 02/28/25 15:22 4 MG Vital Signs 02/28/25 02/28/25 13:37 15:12 Temp 98.6 Pulse 105 Resp 20 18 B/P (MAP) 160/92 Pulse Ox 98 Laboratory Tests Test 02/28/25 13:58 02/28/25 14:05 Sodium Level 143 Potassium Level 3.5 Chloride Level 107 Carbon Dioxide Level 30.0 Anion Gap 6 L Blood Urea Nitrogen 15 Creatinine 0.91 H Estimated GFR/1.73 m2 64 BUN/Creatinine Ratio 16.5 Glucose Level 155 H Calcium Level 8.8 Albumin 3.4 Chemistry Comments White Blood Count 10.8 Red Blood Count 4.56 Hemoglobin 13.3 Hematocrit 40.7 Mean Corpuscular Volume 89.3 Mean Corpuscular Hemoglobin 29.1 Mean Corpuscular Hemoglobin Concent 32.6 L Red Cell Distribution Width 15.2 H Platelet Count 296 Mean Platelet Volume 9.7 Neutrophils (%) (Auto) 73.8 Lymphocytes (%) (Auto) 16.4 L Monocytes (%) (Auto) 6.9 Eosinophils (%) (Auto) 2.4 Basophils (%) (Auto) 0.5 Neutrophils # (Auto) 8.0 H Lymphocytes # (Auto) 1.8 Monocytes # (Auto) 0.7 Eosinophils # (Auto) 0.3 Basophils # (Auto) 0.0 CBC Comment Troponin I High Sensitivity 5 Medical Decision Making Additional information obtaine: old records Findings Recent ER visit Heart Score: 0 Differential Dx:Considerations: Include: angina, aortic dissection, chest wall pain, cholelithiasis, CHF, costochondritis, esophageal reflux/spasm, gastritis, herpes zoster, myocardial infarction, pericarditis, pleuritis, pancreatitis, pneumonia, pneumothorax, pulmonary embolus, other Additional Information Patient's symptoms are very consistent with her heartburn and acid reflux. She did not take her medication today as she did not have it with her and the symptoms are mostly acid reflux. She does not have chest pain or any abdominal pain. Labs are unremarkable-troponin within range, no anemia. Departure Time of Disposition: 15:33 Disposition: 01 HOME / SELF CARE / HOMELESS Impression: Primary Impression: GERD (gastroesophageal reflux disease) Qualified Codes: K21.9 - Gastro-esophageal reflux disease without esophagitis Additional Impression: Heartburn Condition: Stable Discharge Instructions: Gastroesophageal Reflux Disease, Adult, [id number] Additional Instructions: CAPA FREE DIET (NO CAFFEINE, ALCOHOL, PEPPERS (OR HOT FOODS) OR ACIDIC FOODS CONTINUE YOUR PROTONIX THAT YOU HAVE PRESCRIBED, WE GAVE YOU DOSAGE HERE SO YOU DO NOT NEED TO RESUME UNTIL TOMORROW IF CHEST PAIN, SHORTNESS OF BREATH OR ANY OTHER CONCERNING SYMPTOMS RETURN TO ER Referrals: NO PRIMARY CARE PROVIDER (PCP) Education Educated: Patient Educated regarding: diagnosis, treatment, need for follow up Signature Scribe Signature: X Attestation: JEFF ENGLAND Feb 28, 2025 13:57
[2025-02-28 14:36] LABS: MEAN PLATELET VOLUME 9.7 FL (7.4-10.4); RED CELL DISTRIBUTION WIDTH 15.2 % (11.5-14.5)
[2025-02-28 14:47] LABS: CREATININE 0.91 MG/DL (0.40-0.90); TOTAL CARBON DIOXIDE 30.0 MMOL/L (24-32); eCRCL 53 ML/MIN; eGFR 64 ML/MIN
[2025-02-28] MEDS: ondansetron 4mg rapidly disintigrating tab PO ONE (15:22)
[2025-02-28] MEDS: mag hydrox/Alum hydrox/simeth 30ml oral suspension PO ONE (15:37)
[2025-02-28] MEDS: pantoprazole 40mg Tablet.DR PO STA (15:37)
[2025-02-28 15:41] VITALS: BP 140/86; PULSE 88; RESP 18; TEMP 98.6; O2SAT 98
== END 2025-02-28 15:49 | disposition home or self-care (01) ==
LOC: ER 13:27
DX: K21.9 Gastro-esophageal reflux disease without esophagitis (principal); I48.91 Unspecified atrial fibrillation; D64.9 Anemia, unspecified; F15.90 Other stimulant use, unspecified, uncomplicated; Z88.1 Allergy status to other antibiotic agents; Z87.11 Personal history of peptic ulcer disease; Z79.899 Other long term (current) drug therapy; Z59.00 Homelessness unspecified; Z56.0 Unemployment, unspecified
CPT/HCPCS: 36415; 80048; 84484; 85025; 93005; 99284